=== PATIENT | male | born 1990 | race Caucasian/White ===

== ENCOUNTER 2018-06-03 08:30 | Emergency (ER) | payer OTHER, SELFPAY ==
[2018-06-03 08:39] VITALS: BP 127/79; PULSE 77; RESP 12; TEMP 36.6; O2SAT 100
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
== END 2018-06-03 09:14 | disposition home or self-care (01) ==
PROVIDERS: Emergency Provider Emergency Medicine
DX: S89.91XA Unspecified injury of right lower leg, initial encounter (principal); S80.11XA Contusion of right lower leg, initial encounter; W21.03XA Struck by baseball, initial encounter; Y93.64 Activity, baseball
CPT/HCPCS: 73590; 99282; 99283

== ENCOUNTER 2018-09-22 09:35 | Emergency (ER) | payer OTHER, SELFPAY ==
[2018-09-22 09:47] VITALS: BP 122/81; PULSE 79; RESP 20; TEMP 36.6; O2SAT 99; BMI 26.1
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
== END 2018-09-22 10:43 | disposition home or self-care (01) ==
PROVIDERS: Emergency Provider Emergency Medicine
DX: S39.012A Strain of muscle, fascia and tendon of lower back, initial encounter (principal); S16.1XXA Strain of muscle, fascia and tendon at neck level, initial encounter; V49.40XA Driver injured in collision with unspecified motor vehicles in traffic accident, initial encounter
CPT/HCPCS: 99282

== ENCOUNTER 2018-10-04 18:31 | Emergency (ER) | payer OTHER, SELFPAY ==
[2018-10-04 18:41] VITALS: BP 139/87; PULSE 92; RESP 15; TEMP 36.4; O2SAT 98; BMI 26.5
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
--- NOTE | 2018-10-05 18:51 | PC.NURSE ---
Patient call back: Patient states he was having some intermittent pain and burning in his eye today. States he is keeping an eye on it for now but will go the for further eval if needed. Reports no questions about his discharge or visits and no ways to improve his visit.
== END 2018-10-04 20:32 | disposition home or self-care (01) ==
PROVIDERS: Emergency Provider Emergency Medicine
DX: H54.7 Unspecified visual loss (principal)
CPT/HCPCS: 99282

== ENCOUNTER → 2020-03-21 09:55 | Outpatient (CLI) | payer OTHER, SELFPAY ==
[2020-03-22 02:07] LABS: COVID19 Sendout Not Detected (Not Detect)
== END ==
PROVIDERS: Visit Provider Physician Assistant
DX: Z11.59 Encounter for screening for other viral diseases (principal)
CPT/HCPCS: 87635

== ENCOUNTER → 2020-03-26 01:11 | Outpatient (CLI) | payer OTHER, SELFPAY ==
[2020-03-26 03:19] LABS: COVID19 -Nasal RAPID Negative (Negative)
== END ==
PROVIDERS: PCP Family Medicine; Referring Provider Family Medicine; Visit Provider Family Medicine
DX: Z11.59 Encounter for screening for other viral diseases (principal)
CPT/HCPCS: 87635